=== PATIENT | female | born 2000 | race Caucasian/White ===

== ENCOUNTER 2023-08-20 16:00 | Emergency (ER) | payer OTHER ==
[2023-08-20] MEDS ORDERED: METOCLOPRAMIDE 10 MG/2 ML VIAL IVP STA (18:09)
[2023-08-20] MEDS ORDERED: LACTATED RINGERS 1,000 ML IV STA (18:09)
[2023-08-20] MEDS ORDERED: SODIUM CHLORIDE 0.9% 1,000 ML IV STA (18:09)
--- NOTE | 2023-08-20 18:09 | ED Physician Documentation ---
PD HPI ABD PAIN - Stated complaint Stated Complaint: N/V/D/CARTY - Chief complaint Chief Complaint: Abd Pain - History obtained from History obtained from: Patient - Additional information Additional information: . 28 weeks . Got sick yesterday with nausea vomiting and diarrhea. No abdominal pain. No fevers. She did develop a mild headache this morning. No sick contacts. PD PAST MEDICAL HISTORY - Past Medical History Past Medical History: No - Past Surgical History Past Surgical History: No - Present Medications Home Medications: Ambulatory Orders Medication Instructions Recorded Confirmed Metoclopramide [Reglan] 10 mg PO Q6H PRN #20 tablet 08/20/23 Pnv No.95/Ferrous Fum/Folic AC 1 each PO DAILY 08/20/23 08/20/23 [ [place]] - Allergies Allergies/Adverse Reactions: Allergies Allergy/AdvReac Type Severity Reaction Status Date / Time No Known Drug Allergies Allergy Verified 08/20/23 16:39 - Social History Does the pt smoke?: No Smoking Status: Never smoker Does the pt drink ETOH?: No Does the pt have substance abuse?: No - Immunizations Immunizations are current?: Yes PD ED PE NORMAL - Vitals Vital signs reviewed: Yes - General General: Alert and oriented X 3, No acute distress - Abdomen Abdomen: Normal bowel sounds, Soft, Non tender - Female Female : Other (Bedside ultrasound demonstrates single live IUP with heart rate 140) - Back Back: No CVA TTP, No spinal TTP - Neuro Neuro: Alert and oriented X 3, Normal speech Results - Vitals Vitals: Vital Signs - 24 hr 08/20/23 08/20/23 16:35 18:47 Temperature 36.5 C Heart Rate 60 85 Respiratory 15 16 Rate Blood Pressure 131/74 H 121/80 O2 Saturation 97 100 Oxygen O2 Source Room air - Labs Labs: Laboratory Tests 08/20/23 18:15 Sodium 134 L Potassium 3.7 Chloride 104 Carbon Dioxide 24 Anion Gap 6.0 BUN 7 Creatinine 0.6 Estimated GFR (MDRD) 124 Glucose 71 L Calcium 9.5 PD Medical Decision Making - ED course ED course: 23-year-old woman with gastroenteritis in , no abdominal pain and benign examination. BMP showing mild hyponatremia, otherwise unremarkable. Given 2 L of IV crystalloid and IV Reglan with improvement and passed a p.o. challenge. Departure - Departure Disposition: 01 Home, Self Care Clinical Impression: Gastroenteritis Condition: Good Record reviewed to determine appropriate education?: Yes Instructions: ED Gastroenteritis Viral Prescriptions: Metoclopramide [Reglan] 10 mg PO Q6H PRN #20 tablet PRN Reason: nausea or headache Comments: I would expect you to be better by the end of the day tomorrow, return in that timeframe if not. I sent a prescription for nausea medicines to the [facility] in [place]. It is, of course safe in . Forms: PCP List, Activity restrictions
[2023-08-20 18:33] LABS: CALCIUM 9.5 mg/dL (8.5-10.3); CREATININE 0.6 mg/dL (0.6-1.3); POTASSIUM 3.7 mmol/L (3.5-4.5)
[2023-08-20 19:40] VITALS: BP 121/70; O2SAT 98
== END 2023-08-20 19:37 | disposition home or self-care (01) ==
LOC: ED 16:00
DX: K52.9 Noninfective gastroenteritis and colitis, unspecified (principal)
CPT/HCPCS: 36415; 80048; 96374; 99283; J2765; J7120